=== PATIENT | female | born 1995 | race Caucasian/White ===

== ENCOUNTER 2016-06-29 18:16 | Emergency (ER) | payer BC ==
[~2016-06-29] VITALS: Ht 165.1 cm; Wt 71.4 kg
[2016-06-29 18:20] VITALS: Ht 165.1 cm; Wt 71.4 kg
[2016-06-29] MEDS ORDERED: SODIUM CHLORIDE 0.9% 1000ML 1,000 ML IV STA (18:59)
[2016-06-29] MEDS ORDERED: ONDANSETRON INJ 2 MG/ML 2 ML VIAL IV STA (18:59)
[2016-06-29] MEDS ORDERED: BCPILLS PO (19:07)
[2016-06-29] MEDS ORDERED: FERR1TAB23 PO (19:07)
[2016-06-29 19:55] LABS: BASO % 0.4 %; BASO ABS # 0.04 K/uL (0-0.2); COMPLETE YES; EOS % 1.5 %; HEMATOCRIT 37.2 % (37-47); IG% 0.1 %; LYMPH % 23.7 %; LYMPH ABS # 2.22 K/uL (1.2-3.4); MEAN CELL VOLUME 93.2 fL (80-100); MEAN CORPUSCULAR HEMOGLOBIN 30.3 pg (25-34); MEAN CORPUSCULAR HGB CONC 32.5 g/dl (32-36); MEAN PLATELET VOLUME 11.6 fL (7.4-10.4); MONO % 6.2 %; NEUT % 68.1 %; PLATELET COUNT 296 K/uL (130-400); RED BLOOD COUNT 3.99 M/uL (4.2-5.4); WHITE BLOOD COUNT 9.37 K/uL (4.8-10.8)
[2016-06-29 20:10] LABS: BUN/CREATININE RATIO 9.6 (10-20); CREATININE 0.82 mg/dl (0.60-1.20); POTASSIUM 3.8 mmol/L (3.5-5.1)
[2016-06-29 20:13] LABS: ALB/GLOB RATIO 0.9 (0.9-2)
[2016-06-29] MEDS ORDERED: ONDA4TAB10 SL (21:18)
--- NOTE | 2016-06-29 21:18 | EMERGENCY ROOM VISIT NOTE ---
History First contact with patient: 18:52 Chief Complaint: VOMITING Stated Complaint: VOMIT Nursing Triage Summary: vomiting and diarrhea started yesterday abd pain 2 emesis 2 loose stools History of Present Illness The patient is a 21 year old female who presents to the Emergency Room with complaints of nausea, vomiting, diarrhea and abdominal discomfort which started yesterday. The patient states that she believes she must have eaten something bad at the dining [place]. She reports that since yesterday afternoon, she has had multiple episodes of diarrhea as well as vomiting. She reports some lower abdominal discomfort. She denies any blood in her stools. She rates her overall discomfort a 5/10. She has not been taking any medication for her symptoms. She denies any chest pain, shortness of breath, urinary symptoms, sore throat, headache or neck pain. Review of Systems A complete 10-point Review of Systems was discussed with the patient, with pertinent positives and negatives listed in the History of Present Illness. All remaining Review of Systems questions can be considered negative unless otherwise specified. Social History Smoking Status: Never Smoker Current/Historical Medications Scheduled Control Pills ( Control Pills), 1 TAB PO DAILY Ferrous Sulfate (Iron), 1 TAB PO BID Ondasetron Odt (Zofran Odt), 4 MG SL Q6H Allergies Coded Allergies: No Known Allergies (Unverified , 06/29/16) Physical Exam Vital Signs Date Time Temp Pulse Resp B/P Pulse Ox O2 Delivery O2 Flow Rate FiO2 06/29/16 21:37 36.9 69 18 100 Room Air 06/29/16 21:37 36.9 69 18 110/78 100 06/29/16 18:20 36.9 111 20 110/78 100 Room Air Physical Exam VITALS: Vitals are noted on the nurse's note and reviewed by myself. Vital signs stable. GENERAL: This is a 21-year-old female, in no acute distress, nondiaphoretic, well-developed well-nourished. SKIN: Capillary reflex less than 2 seconds. HEENT: Normocephalic. PERRLA. EOMI. Nares patent. Mucous membranes moist. Neck is supple without nuchal rigidity. HEART: Regular rate and rhythm without murmurs gallops or rubs.No retractions or accessory muscle use. ABDOMEN: Positive bowel sounds x 4. Soft, nontender to palpation. NEURO: Patient was alert and oriented to person place and time. Medical Decision & Procedures Laboratory Results 06/29/16 19:45 Red Blood Count 3.99, Mean Corpuscular Volume 93.2, Mean Corpuscular Hemoglobin 30.3, Mean Corpuscular Hemoglobin Concent 32.5, Mean Platelet Volume 11.6, Neutrophils (%) (Auto) 68.1, Lymphocytes (%) (Auto) 23.7, Monocytes (%) (Auto) 6.2, Eosinophils (%) (Auto) 1.5, Basophils (%) (Auto) 0.4, Neutrophils # (Auto) 6.38, Lymphocytes # (Auto) 2.22, Monocytes # (Auto) 0.58, Eosinophils # (Auto) 0.14, Basophils # (Auto) 0.04 06/29/16 19:45 Test 06/29/16 19:45 White Blood Count 9.37 K/uL (4.8-10.8) Red Blood Count 3.99 M/uL (4.2-5.4) Hemoglobin 12.1 g/dL (12.0-16.0) Hematocrit 37.2 % (37-47) Mean Corpuscular Volume 93.2 fL (80-100) Mean Corpuscular Hemoglobin 30.3 pg (25-34) Mean Corpuscular Hemoglobin Concent 32.5 g/dl (32-36) Platelet Count 296 K/uL (130-400) Mean Platelet Volume 11.6 fL (7.4-10.4) Neutrophils (%) (Auto) 68.1 % Lymphocytes (%) (Auto) 23.7 % Monocytes (%) (Auto) 6.2 % Eosinophils (%) (Auto) 1.5 % Basophils (%) (Auto) 0.4 % Neutrophils # (Auto) 6.38 K/uL (1.4-6.5) Lymphocytes # (Auto) 2.22 K/uL (1.2-3.4) Monocytes # (Auto) 0.58 K/uL (0.11-0.59) Eosinophils # (Auto) 0.14 K/uL (0-0.5) Basophils # (Auto) 0.04 K/uL (0-0.2) RDW Standard Deviation 49.3 fL (36.4-46.3) RDW Coefficient of Variation 14.6 % (11.5-14.5) Immature Granulocyte % (Auto) 0.1 % Immature Granulocyte # (Auto) 0.01 K/uL (0.00-0.02) Anion Gap 9.0 mmol/L (3-11) Est Creatinine Clear Calc Drug Dose 108.4 ml/min Estimated GFR () 119.4 Estimated GFR (Non- 103.0 BUN/Creatinine Ratio 9.6 (10-20) Calcium Level 9.0 mg/dl (8.5-10.1) Total Bilirubin 0.2 mg/dl (0.2-1) Aspartate Amino Transf (AST/SGOT) 13 U/L (15-37) Alanine Aminotransferase (ALT/SGPT) 17 U/L (12-78) Alkaline Phosphatase 76 U/L (45-117) Total Protein 7.8 gm/dl (6.4-8.2) Albumin 3.6 gm/dl (3.4-5.0) Globulin 4.2 gm/dl (2.5-4.0) Albumin/Globulin Ratio 0.9 (0.9-2) Lipase 126 U/L (73-393) Medications Administered Medications (Trade) Dose Ordered Sig/Tamiko Route Start Time Stop Time Status Last Admin Dose Admin Sodium Chloride (Nss 1000ml) 1,000 ml @ 999 mls/hr Q1H1M STAT IV 06/29/16 18:59 06/29/16 19:59 DC 06/29/16 19:35 999 MLS/HR Ondansetron HCl (Zofran Inj) 4 mg NOW STAT IV 06/29/16 18:59 06/29/16 19:02 DC 06/29/16 19:33 4 MG Medical Decision Differential diagnosis includes gastritis, colitis, appendicitis, cholecystitis , ovarian cyst, ovarian torsion, UTI, among others. The patient was evaluated as above. Labs were drawn and IV access was obtained. Imaging studies were performed and read by radiology as above. The patient was medicated with 4 mg Zofran IV and hydrated with 1 L normal saline solution. The patient was reassessed multiple times during their stay in the emergency department and remained in stable condition. The patient is a 21-year-old female who presents today complaining of nausea, vomiting and diarrhea consistent with a viral gastritis. Labs revealed no leukocytosis, anemia or concerning electrolyte abnormalities. Patient was given IV fluids and antiemetics. She was reassessed and stated she felt significantly better. She will be given a prescription for Zofran. She was instructed to follow-up with her primary care provider as needed. Based on the patient's presentation, lab results, and imaging studies, I feel the patient is stable for outpatient treatment. Discharge instructions were reviewed with the patient. The patient verbalized understanding of my assessment and treatment plan and was discharged home in good condition. Impression Primary Impression: Nausea, vomiting, and diarrhea Departure Information Dispostion Home / Self-Care Condition GOOD Prescriptions Ondasetron Odt (ZOFRAN ODT) 4 Mg Tab 4 MG SL Q6H for Nausea, #15 TAB Prov: Bernice Casey ., GEGE 06/29/16 Referrals [facility] (PCP) Patient Instructions My [facility] Additional Instructions You have been treated in the Emergency Department your Abdominal Pain. Laboratory results and imaging studies have ruled out any emergent causes for your abdominal pain which would warrant admission or surgery. You have been prescribed Zofran to be used for any nausea or vomiting. Take as prescribed. For pain control, you can use the following [id number] medicines (if >12 yo): - Regular strength (325mg/tab) Tylenol (acetaminophen) 2 tabs every 4-6 hours as needed. Do not exceed 12 tablets in a 24 hour period. Avoid taking more than 4 grams (4000 mg) of Tylenol per day. This includes any other sources of acetaminophen you may take on a regular basis. - Regular strength (200 mg/tab) Advil (ibuprofen) 1-2 tabs every 4-6 hours as needed. Do not exceed a dose of 3200 mg per day. Drink plenty of water and stay well hydrated. As with any trip to the Emergency Department, you should follow-up with your Primary Care Provider from today's visit. Return to the emergency department if your symptoms persist despite treatment plan outlined above or if the following symptoms occur: increased fevers, chills , worsening nausea/vomiting, blood in your stool or urine.
[2016-06-29 21:37] VITALS: BP 110/78; PULSE 69; TEMP 36.9; O2SAT 100
== END 2016-06-29 21:38 | disposition home or self-care (01) ==
LOC: C.EDB 18:19 → C.EDA 21:38
DX: R11.2 Nausea with vomiting, unspecified (principal); R19.7 Diarrhea, unspecified